=== PATIENT | female | born 1945 | race Caucasian/White ===

== ENCOUNTER → 2016-11-13 | Outpatient (CLI) | payer MEDICARE ==
[~2016-11-13] MED LIST: CALC-685 PO; CEPH500C PO; CHOL10003 PO; E400C PO; GLUC1TAB9 PO; GLUC500C2 PO; METH454P PO; NF-CIT200 PO; NF-ESOM40C PO; STOOL SOFTNER PO; VITA200C18 PO
== END ==
LOC: FS 10:29
PROVIDERS: ATTEND Internal Medicine Hematology & Oncology
DX: Z08 Encounter for follow-up examination after completed treatment for malignant neoplasm (principal); Z85.3 Personal history of malignant neoplasm of breast; M81.0 Age-related osteoporosis without current pathological fracture; I89.0 Lymphedema, not elsewhere classified; Z79.899 Other long term (current) drug therapy
CPT/HCPCS: 99213

== ENCOUNTER → 2017-11-19 | Outpatient (CLI) | payer MEDICARE | LOC: ONC 10:38 | PROVIDERS: ATTEND Internal Medicine Hematology & Oncology | DX: Z08 Encounter for follow-up examination after completed treatment for malignant neoplasm (principal); Z85.3 Personal history of malignant neoplasm of breast; M81.0 Age-related osteoporosis without current pathological fracture; I89.0 Lymphedema, not elsewhere classified; Z79.899 Other long term (current) drug therapy | CPT/HCPCS: 99213 ==

== ENCOUNTER → 2018-11-18 | Outpatient (CLI) | payer MEDICARE | LOC: ONC 10:13 | PROVIDERS: ATTEND Internal Medicine Hematology & Oncology | DX: Z08 Encounter for follow-up examination after completed treatment for malignant neoplasm (principal); Z85.3 Personal history of malignant neoplasm of breast; M81.0 Age-related osteoporosis without current pathological fracture; Z79.899 Other long term (current) drug therapy | CPT/HCPCS: 99213 ==

== ENCOUNTER 2018-12-23 06:45 | Day surgery (SDC) | payer MEDICARE, BC ==
[~2018-12-23] VITALS: Ht 160 cm; Wt 68.0 kg
[2018-12-23] VITALS (9 sets, daily range): BP systolic 112–144; BP diastolic 57–86
[2018-12-23] MEDS ORDERED: LIDOCAINE 1% INJ 20 ML 20 ML VIAL ONE (06:47)
[2018-12-23] MEDS ORDERED: HEParin (CATH LAB) 2,000 ML IV ONE (06:47)
[2018-12-23] MEDS ORDERED: NS IV 1000 ML 1,000 ML ONE (06:47)
[2018-12-23] MEDS ORDERED: NS IV 1000 ML 1,000 ML IV SCH ×2 (07:00→08:50)
[2018-12-23 07:12] LABS: HEMOGLOBIN 12.8 G/DL (11.5-16.0); MEAN PLATELET VOLUME 9.1 FL (7.4-10.4); RED CELL DISTRIBUTION WIDTH 14.8 % (10.0-14.5); WHITE BLOOD COUNT 8.6 10^3/uL (4.3-11.0)
[2018-12-23 07:25] LABS: INR 0.9 (0.8-1.4); PROTHROMBIN TIME PATIENT 12.2 SEC (12.2-14.7)
[2018-12-23] MEDS ORDERED: CETI-187 PO (07:32)
[2018-12-23] MEDS ORDERED: PARO20TA5 PO (07:32)
[2018-12-23] MEDS ORDERED: MULT-1021 PO (07:32)
[2018-12-23] MEDS ORDERED: ACET-2267 PO (07:32)
[2018-12-23] MEDS ORDERED: OMEP40CA36 PO (07:32)
[2018-12-23] MEDS ORDERED: KRIL1CAP22 PO (07:32)
[2018-12-23] MEDS ORDERED: ASPI-586 PO (07:32)
[2018-12-23] MEDS ORDERED: GABA-486 PO (07:32)
[2018-12-23] MEDS ORDERED: ATOR20TA66 PO (07:32)
[2018-12-23] MEDS ORDERED: NAPR220C11 PO (07:32)
[2018-12-23] MEDS ORDERED: [UNRECOGNIZED DRUG - CODE] TP (07:32)
[2018-12-23 07:33] LABS: ALANINE AMINOTRANSFERASE 26 U/L (0-55); ALBUMIN 4.3 GM/DL (3.2-4.5); ALKALINE PHOSPHATASE 109 U/L (40-136); BILIRUBIN,TOTAL 0.5 MG/DL (0.1-1.0); BUN/CREATININE RATIO 15; CALCIUM 9.7 MG/DL (8.5-10.1); CARBON DIOXIDE 25 MMOL/L (21-32); CHLORIDE 108 MMOL/L (98-107); CHOLESTEROL 151 MG/DL (< 200); CREATININE SERUM 0.82 MG/DL (0.60-1.30); GFR ESTIMATED > 60; GLUCOSE 97 MG/DL (70-105); HDL CHOLESTEROL 52 MG/DL (40-60); POTASSIUM 3.9 MMOL/L (3.6-5.0); SODIUM 144 MMOL/L (135-145); TOTAL PROTEIN 7.5 GM/DL (6.4-8.2); TRIGLYCERIDES 171 MG/DL (<150); VLDL CHOLESTEROL 34 MG/DL (5-40)
[2018-12-23] MEDS ORDERED: MIDAZOLAM 5 MG/5 ML (VERSED) VIAL ONE (07:43)
[2018-12-23] MEDS ORDERED: fentaNYL INJECTION 100 MCG/2 ML AMP ONE (07:43)
--- NOTE | 2018-12-23 08:50 | Cardiac Procedure Note-CS/ASA ---
Pre-Procedure Note Pre-Op Procedure Note H&P Reviewed The H&P was reviewed, patient examined and no changes noted. Date H&P Reviewed: Dec 23, 2018 Time H&P Reviewed: 08:15 Conscious Sedation Pre-Proced Time 08:15 ASA Score 3 For ASA 3 and 4: Consider anesthesia and medical clearance. Also, for patients with a history of failed moderate sedation consider anesthesia. Airway Lungs Heart ASA score ASA 1: a normal healthy patient ASA 2: a patient with a mild systemic disease (mid diabetes, controlled hypertension, obesity ASA 3: a patient with a severe systemic disease that limits activity (angina, COPD, prior Myocardial infarction) ASA 4: a patient with an incapacitating disease that is a constant threat to life (CHF, renal failure) ASA 5: a moribund patient not expected to survive 24 hrs. (ruptured aneurysm) ASA 6: a declared brain- patient whose organs are being harvested. For emergent operations, add the letter E after the classification Mallampati Classification Grade 2 Sedation Plan Analgesia, Amnesia, Plan communicated to team members, Discussed options with patient/fam, Discussed risks with patient/fam The patient is an appropriate candidate to undergo the planned procedure, sedation, and anesthesia. The patient immediately re-assessed prior to indication. ELSA KNOWLES MD FACP FAC CCDS Dec 23, 2018 08:50
--- NOTE | 2018-12-23 08:55 | Discharge Inst-Post CATH ---
Discharge Inst-CATH/EP Problems Reviewed?: Yes Post Cardiac Cath/EP D/C Inst Follow Up/Plan F/u with Dr Tobar in 2 weeks ACTIVITY * Go Home directly and rest. * Limit activity of the leg (or wrist if it was used) for 7 days including aerobics, swimming, jogging, bicycling, etc. * Restrict stair-climbing for 7 days if possible, if not, climb up with your non-cath leg, then bring together on the same step. * Avoid lifting, pushing, pulling or excessive movement of the affected extremity for 7 days. * Customary sexual activity may be resumed after 2 days-use caution not to use a position that strains or causes pain to the affected extremity. * No driving for 24 hours. * NO SMOKING. * Avoid straining for bowel movements for 7 days. * Gentle walking on level ground is allowed. * Returning to work will depend on the type of procedure and the results. Your doctor will discuss this with you. CALL YOUR DOCTOR FOR ANY OF THE FOLLOWING: *If bleeding from the puncture site occurs- Apply gentle pressure to site with clean cloth and call your doctor or EMS. * If a knot or lump forms under the skin, increases in size, or causes pain. * If bruising appears to be worsening or moving further down your leg instead of disappearing. * Temperature above 101 F. CARE OF YOUR GROIN INCISION; * Bruising or purple discoloration of the skin near the puncture site is common. * You may shower only, no bathtub bathing for 5 days. Be careful to avoid slipping as your leg may feel stiff. * If a closure device was used on your femoral artery, please see the attached guide regarding care of the device and your leg. * Leave dressing on FOR 24 hours. CARE OF YOUR WRIST INCISION; * Bruising or purple discoloration of the skin near the puncture site is common. * You may shower. * DO NOT submerge wrist. * Leave dressing on FOR 24 hours. ELSA TOBAR MD FACP [facility] CCDS Dec 23, 2018 08:54
--- NOTE | 2018-12-23 08:55 | Discharge Inst-Cardiology ---
Discharge Inst-Cardiac Problems Reviewed?: Yes Discharge Medications Continued Medications: Acetaminophen (Tylenol Extra Strength) 500 Mg Tablet 500 MG PO QID, TAB Aspirin (Aspir 81) 81 Mg Tablet.dr 81 MG PO DAILY, TAB Atorvastatin Calcium (Atorvastatin Calcium) 20 Mg Tablet 20 MG PO DAILY, TAB Calcium Carbonate/Vitamin D3 (Calcium 600 + Vit D 400 Caplet) 1 Each Tablet 1 EACH PO BID Cetirizine HCl (Aller-Hiwot) 10 Mg Tablet 10 MG PO DAILY, TAB Cholecalciferol (Vitamin D) 1,000 Unit Tablet 1000 UNIT PO DAILY Fluticasone Propionate (Fluticasone Propionate) 120 Ml Lotion 120 ML TP DAILY, ML Gabapentin (Gabapentin) 100 Mg Capsule 100 MG PO Q8H for Neuropathic pain, CAP Glucosamine Hcl/Msm (Sm Glucosamine & Msm Tablet) 1 Each Tablet 1 EACH PO BID 1500MG TAB PO BID TAKING OWN MED Krill/Om-3/Dha/Epa/Phospho/Ast (Megared [place]-3 Krill Oil Sfgl) 1 Each Capsule 1 EACH PO DAILY, CAP Multivits-Min/Iron/FA/Lutein (Centrum Silver Women Tablet) 1 Each Tablet 1 EACH PO DAILY, TAB Omeprazole (Omeprazole) 40 Mg Capsule.dr 40 MG PO DAILY, CAP Paroxetine HCl (Paroxetine HCl) 20 Mg Tablet 20 MG PO DAILY, TAB Vitamin E Acetate (Vitamin E) 400 Unit Capsule 400 UNIT PO DAILY Discontinued Medications: Naproxen Sodium (Aleve) 220 Mg Capsule 220 MG PO BID, ELSA WOODARD MD FACP FAC CCDS Dec 23, 2018 08:55
--- NOTE | 2018-12-23 08:55 | CARDIAC CATHETERIZATION ---
DATE OF SERVICE: 12/23/2018 CARDIAC CATHETERIZATION REPORT The patient is a 73-year-old lady, who has multiple coronary artery disease risk factors and who has symptoms that are suggestive of new onset of angina pectoris. Cardiac catheterization was carried out today after having obtained an informed consent. PROCEDURE IN DETAIL: She was brought to the cardiac catheterization laboratory in a fasting state. Right groin was prepared and draped in the usual sterile fashion. Lidocaine 1% was used for local anesthesia. Modified Seldinger technique was used to advance a 5-Israeli sheath in the right femoral artery, 5-Israeli JL4 catheter was used for left coronary angiography, 5-Israeli JR4 catheter for right coronary angiography, 5-Israeli pigtail catheter was used for left heart catheterization and left ventricular coronary angiography. Pigtail was pulled back to the aortic arch and aortic arch angiography was performed. Pigtail was removed. Angiography of the right femoral artery was carried out through the sheath. Mynx was used to achieve hemostasis. She tolerated the procedure well. HEMODYNAMICS: Left ventricular end-diastolic pressure was 12 mmHg. There was no significant pressure gradient on pullback across the aortic valve. Ascending aortic pressure was 127/68 with a mean of 68 mmHg. LEFT VENTRICULAR CORONARY ANGIOGRAPHY: Left ventricular coronary angiography was carried out in the right anterior oblique projection. Global left ventricular systolic function is normal. No regional wall motion abnormalities are seen. Left ventricular ejection fraction is approximately 60 to 65%. CORONARY ANGIOGRAPHY: Left main coronary artery is free of significant disease. Left anterior descending artery has mild calcification. Left circumflex artery is small and nondominant and free of significant disease. Right coronary artery is large and dominant and has mild plaques and mild calcification. AORTIC ARCH ANGIOGRAPHY: Aortic arch angiography did not indicate any significant thoracic aortic aneurysm or dissection, to the extent visualized. The neck arteries, to the extent visualized, do not exhibit significant disease. CONCLUSIONS: 1. Angiographically mild coronary artery disease. 2. Normal global left ventricular systolic function with ejection fraction of 60 to 65%. 3. Normal left ventricular end-diastolic pressure. DISCUSSION AND RECOMMENDATIONS: Based on results of the study, it appears appropriate to continue a conservative approach. Risk factor modification has been reviewed with her. Outpatient followup is advised. Job ID: [id number] DocumentID: [id number] Dictated Date: 12/23/2018 08:42:28 Stone Grader Date: 12/23/2018 08:54:49 Dictated By: ELSA KNOWLES MD, MA, FACP, FACC, MTDD
[2018-12-23] MEDS ORDERED: PATIENT MAY USE OWN MEDS, ALL PO SCH (09:00)
== END 2018-12-23 12:10 | disposition home or self-care (01) ==
LOC: CATH 06:45 → SDC 09:02 → CATH 12:10
PROVIDERS: ATTEND Internal Medicine Cardiovascular Disease
DX: I25.10 Atherosclerotic heart disease of native coronary artery without angina pectoris (principal); M81.0 Age-related osteoporosis without current pathological fracture; K21.9 Gastro-esophageal reflux disease without esophagitis; Z85.3 Personal history of malignant neoplasm of breast; I77.9 Disorder of arteries and arterioles, unspecified; E78.5 Hyperlipidemia, unspecified; R06.02 Shortness of breath; Z11.2 Encounter for screening for other bacterial diseases; Z88.2 Allergy status to sulfonamides; Z79.899 Other long term (current) drug therapy
CPT/HCPCS: 36221; 36415; 80053; 80061; 85027; 85610; 85730; 87081; 93458

== ENCOUNTER → 2019-01-13 | Outpatient (CLI) | payer MEDICARE, BC ==
[2019-01-13] VITALS (21 sets, daily range): BP systolic 103–137; BP diastolic 66–86
[~2019-01-13] VITALS: Ht 157.5 cm; Wt 69.4 kg
[~2019-01-13] MED LIST changes: +ACET-2267 PO; +ASPI-586 PO; +ATOR20TA66 PO; +ATROPINE INJECTION 1 MG/10 ML SYR (ABBOTT) ONE; +CETI-187 PO; +GABA-486 PO; +KRIL1CAP22 PO; +MULT-1021 PO; +NAPR220C11 PO; +NS IV 1000 ML 1,000 ML IV SCH; +NS IV 1000 ML 1,000 ML ONE; +OMEP40CA36 PO; +PARO20TA5 PO; +[UNRECOGNIZED DRUG - CODE] TP
--- NOTE | 2019-01-13 09:10 | NUR ---
iv dc'd cath intact on removal, dc via w/c
== END ==
LOC: CARD 06:52
PROVIDERS: ATTEND Internal Medicine Cardiovascular Disease
DX: I65.29 Occlusion and stenosis of unspecified carotid artery (principal); I25.10 Atherosclerotic heart disease of native coronary artery without angina pectoris; E78.5 Hyperlipidemia, unspecified; Z95.0 Presence of cardiac pacemaker
CPT/HCPCS: 93660

== ENCOUNTER → 2019-02-11 | Outpatient (CLI) | payer MEDICARE, BC ==
[~2019-02-11] MED LIST changes: -ATROPINE INJECTION 1 MG/10 ML SYR (ABBOTT) ONE; -NS IV 1000 ML 1,000 ML IV SCH; -NS IV 1000 ML 1,000 ML ONE
== END ==
LOC: RT 12:18
PROVIDERS: ATTEND Internal Medicine Cardiovascular Disease
DX: I65.29 Occlusion and stenosis of unspecified carotid artery (principal); R06.02 Shortness of breath; R55 Syncope and collapse; R07.89 Other chest pain

== ENCOUNTER → 2019-03-06 | Outpatient (CLI) | payer MEDICARE, BC ==
[~2019-03-06] MED LIST changes: +OMEP40CA27 PO; -OMEP40CA36 PO
--- NOTE | 2019-03-06 12:36 | Diagnostic Imaging Report ---
INDICATION: Routine screening. Comparison is made with prior mammogram from 02/24/2018 and 02/12/2017. 2-D and 3-D bilateral screening mammography was performed with a Computer Aided Detection (CAD) system. 3-D tomosynthesis was also performed and reviewed. FINDINGS: Scattered fibroglandular densities are identified bilaterally. Postbiopsy changes medial left breast again noted. Marker clip at the biopsy site is again noted. Overall parenchymal pattern appears to be stable. There are vascular and benign calcifications present bilaterally. No mass or malignant appearing microcalcifications are seen. Surgical clips left axilla are noted. IMPRESSION: No mammographic features suspicious for malignancy are identified. ACR BI-RADS Category 2: Benign findings. Result letter will be mailed to the patient. Note: At least 10% of breast cancer is not imaged by mammography. Dictated by: Dictated on workstation # [id number]
== END ==
LOC: RAD 11:22
PROVIDERS: ATTEND Internal Medicine Hematology & Oncology
DX: Z12.31 Encounter for screening mammogram for malignant neoplasm of breast (principal)
CPT/HCPCS: 77067

== ENCOUNTER → 2019-06-26 | Outpatient (CLI) | payer MEDICARE, BC ==
--- NOTE | 2019-06-26 14:33 | Diagnostic Imaging Report ---
INDICATION: Abdominal pain. EXAMINATION: HIDA scan dated 06/26/2019. FINDINGS: After uneventful administration of 5.07 mCi of Choletec intravenously, subsequent imaging was performed. The liver is homogeneous in appearance with prompt uptake noted. Gallbladder and proximal small bowel loops are all seen in less than 40 minutes. 8 ounces of Ensure were ingested orally at 45 minutes with continued imaging performed. Ejection fraction is calculated at 40.4% IMPRESSION: 1. No obstructive process seen. 2. Normal ejection fraction. Dictated by: Dictated on workstation # [id number]
== END ==
LOC: CARD 11:32
PROVIDERS: ATTEND Family Medicine
DX: R10.9 Unspecified abdominal pain (principal)
CPT/HCPCS: 78227

== ENCOUNTER → 2019-11-23 | Outpatient (CLI) | payer MEDICARE, BC ==
[2019-11-23 13:08] LABS: BASOPHILS % (AUTO) 1 % (0-10); EOSINOPHILS # (AUTO) 0.2 10^3/uL (0.0-0.3); EOSINOPHILS % (AUTO) 2 % (0-10); HEMATOCRIT 37 % (35-52); HEMOGLOBIN 12.3 G/DL (11.5-16.0); LYMPHOCYTES # (AUTO) 2.8 X 10^3 (1.0-4.0); LYMPHOCYTES % (AUTO) 33 % (12-44); MEAN CORPUSCULAR HEMOGLOBIN 31 PG (25-34); MEAN CORPUSCULAR HGB CONC 33 G/DL (32-36); MEAN CORPUSCULAR VOLUME 93 FL (80-99); MEAN PLATELET VOLUME 8.9 FL (7.4-10.4); MONOCYTES # (AUTO) 0.6 X 10^3 (0.0-1.0); MONOCYTES % (AUTO) 7 % (0-12); NEUTROPHILS # (AUTO) 4.8 X 10^3 (1.8-7.8); NEUTROPHILS % (AUTO) 57 % (42-75); PLATELET COUNT 259 10^3/uL (130-400); RED CELL DISTRIBUTION WIDTH 13.8 % (10.0-14.5); WHITE BLOOD COUNT 8.4 10^3/uL (4.3-11.0)
[2019-11-23 13:32] LABS: ALANINE AMINOTRANSFERASE 24 U/L (0-55); ALBUMIN 4.1 GM/DL (3.2-4.5); ALKALINE PHOSPHATASE 93 U/L (40-136); BILIRUBIN,TOTAL 0.3 MG/DL (0.1-1.0); BUN/CREATININE RATIO 18; CALCIUM 9.3 MG/DL (8.5-10.1); CARBON DIOXIDE 24 MMOL/L (21-32); CHLORIDE 106 MMOL/L (98-107); CREATININE SERUM 0.78 MG/DL (0.60-1.30); GFR ESTIMATED > 60; GLUCOSE 109 MG/DL (70-105); POTASSIUM 3.9 MMOL/L (3.6-5.0); SODIUM 140 MMOL/L (135-145); TOTAL PROTEIN 7.1 GM/DL (6.4-8.2)
== END ==
LOC: ONC 12:57
PROVIDERS: ATTEND Internal Medicine Hematology & Oncology
DX: C50.912 Malignant neoplasm of unspecified site of left female breast (principal); I89.0 Lymphedema, not elsewhere classified; K21.9 Gastro-esophageal reflux disease without esophagitis; E78.5 Hyperlipidemia, unspecified; Z92.21 Personal history of antineoplastic chemotherapy; Z92.3 Personal history of irradiation; Z90.12 Acquired absence of left breast and nipple
CPT/HCPCS: 80053; 85025; G0463; 99213

== ENCOUNTER → 2020-03-07 | Outpatient (CLI) | payer MEDICARE, BC ==
--- NOTE | 2020-03-07 16:23 | Diagnostic Imaging Report ---
INDICATION: Routine screening. COMPARISON: 03/06/2019 and 02/24/2018. TECHNIQUE: 2D and 3D bilateral screening mammography was performed with CAD. FINDINGS: Scattered fibroglandular densities are identified bilaterally. The parenchymal pattern is stable. No mass or malignant appearing microcalcifications are seen. There is a marker clip in the left breast. There are benign parenchymal and vascular calcifications. The axillae are unremarkable. IMPRESSION: No mammographic features suspicious for malignancy are identified. ACR BI-RADS Category 2: Benign findings. Result letter will be mailed to the patient. Note: At least 10% of breast cancer is not imaged by mammography. Dictated by: Dictated on workstation # [id number]
== END ==
LOC: RAD 15:00
PROVIDERS: ATTEND Internal Medicine Hematology & Oncology
DX: Z12.31 Encounter for screening mammogram for malignant neoplasm of breast (principal)
CPT/HCPCS: 77063; 77067

== ENCOUNTER 2020-05-15 11:48 | Inpatient (IN) | payer MEDICARE, BC ==
[~2020-05-15] VITALS: Ht 157 cm; Wt 67.0 kg
[2020-05-15] MEDS ORDERED: NS IV 1000 ML 1,000 ML IV SCH ×2 (13:00→14:30)
--- NOTE | 2020-05-15 13:40 | ED Upper Extremity ---
General Chief Complaint: Upper Extremity Stated Complaint: LT ARM SWELLING Nursing Triage Note: left arm and hand started swelling and having redness this morning. States has had this happen before and has had to be on antibiotics for infection. States she felt bad yesterday with tiredness/weakness. Denies fevers. Nursing Sepsis Screen: No Definite Risk Source: patient History of Present Illness Date Seen by Provider: May 15, 2020 Time Seen by Provider: 13:40 Initial Comments 75-year-old female presenting with complaints of left hand and arm swelling. She noticed that it was more red and tender this morning. She was not feeling well last night and has been more fatigued. She just was getting over COVID that she had at the beginning of April. she denies having any fever or chills at home. She already has lymphedema in her left arm due to to prior lymph node dissection after breast cancer. She has had cellulitis in that arm previously the last admission was in 2011. She denies any injury or trauma there is no scratches or abrasions to her left hand/arm. Allergies and Home Medications Allergies Coded Allergies: vancomycin (Verified Allergy, Intermediate, RASH, 05/11/11) Sulfa (Sulfonamide Antibiotics) (Unverified Allergy, Mild, RASH, 05/11/11) Home Medications Acetaminophen 500 Mg Tablet, 500 MG PO QID, (Reported) Aspirin 81 Mg Tablet.dr, 81 MG PO DAILY, (Reported) Atorvastatin Calcium 20 Mg Tablet, 20 MG PO DAILY, (Reported) Calcium Carbonate/Vitamin D3 1 Each Tablet, 1 EACH PO BID, (Reported) Cetirizine HCl 10 Mg Tablet, 10 MG PO DAILY, (Reported) Cholecalciferol 1,000 Unit Tablet, 1,000 UNIT PO DAILY, (Reported) Fluticasone Propionate 120 Ml Lotion, 120 ML TP DAILY, (Reported) Gabapentin 100 Mg Capsule, 100 MG PO Q8H, (Reported) Glucosamine Hcl/Msm 1 Each Tablet, 1 EACH PO BID, (Reported) 1500MG TAB PO BID TAKING OWN MED Krill/Om-3/Dha/Epa/Phospho/Ast 1 Each Capsule, 1 EACH PO DAILY, (Reported) Multivits-Min/Iron/FA/Lutein 1 Each Tablet, 1 EACH PO DAILY, (Reported) Omeprazole 40 Mg Capsule.dr, 40 MG PO DAILY, (Reported) Paroxetine HCl 20 Mg Tablet, 20 MG PO DAILY, (Reported) Vitamin E Acetate 400 Unit Capsule, 400 UNIT PO DAILY, (Reported) Patient Home Medication List Home Medication List Reviewed: Yes Review of Systems Constitutional: No chills, No fever; malaise (since yesterday) EENTM: no symptoms reported Respiratory: no symptoms reported Cardiovascular: no symptoms reported Gastrointestinal: No nausea, No vomiting Genitourinary: no symptoms reported Musculoskeletal: see HPI Skin: see HPI Psychiatric/Neurological: No Symptoms Reported Past Bjegsnv-Ogkcts-Wdtasn Hx Past Med/Social Hx: Reviewed Nursing Past Med/Soc Hx Patient Social History Alcohol Use: Denies Use Recreational Drug Use: No Smoking Status: Never a Smoker 2nd Hand Smoke Exposure: No Recent Foreign Travel: No Contact w/Someone Who Travel: No Recent Infectious Disease Expo: No Physical Abuse: No Sexual Abuse: No Mistreated: No Fear: No Immunizations Up To Date Date of Pneumonia Vaccine: Jan 09, 2010 Date of Influenza Vaccine: Jan 04, 2011 Past Medical History Surgeries: Yes (HYSTORECTOMY, BLADDER, UTERUS REPAIR, LUMPECTOMY, CATARACTS) Breast, Hysterectomy, Orthopedic, Tonsillectomy Respiratory: No Currently Using CPAP: No Cardiac: Yes Hypotension, Syncope Neurological: No Reproductive Disorders: Yes Genitourinary: No Gastrointestinal: Yes Gastroesophageal Reflux Musculoskeletal: Yes Endocrine: No Cancer: Yes Breast Did You Recieve Any Treatments: Yes What Type of Treatment Did You: Chemotherapy, Radiation, Surgical Intervention Psychosocial: No Integumentary: No Blood Disorders: No Adverse Reaction/Blood Tranf: No Physical Exam Vital Signs Vital Signs - First Documented 05/15/20 12:36 Temp 36.4 Pulse 112 Resp 16 B/P (MAP) 130/100 (110) Pulse Ox 92 Capillary Refill : Less Than 3 Seconds Height, Weight, BMI Height: 5'2.00" Weight: 153lbs. 0.0oz. 69.764258fp; 27.00 BMI Method: General Appearance: WD/WN, no apparent distress HEENT: PERRL/EOMI Neck: non-tender, supple Cardiovascular: normal peripheral pulses, regular rate, rhythm Respiratory: chest non-tender, lungs clear, normal breath sounds Elbow/Forearm: soft tissue tenderness, swelling (Left hand/forearm with swelling, redness and mild tenderness to palpation. Extends up to above elbow. ) Hand: soft tissue tenderness, swelling (Left hand/forearm with swelling, redness and mild tenderness to palpation. Extends up to above elbow. ) Neurologic/Tendon: normal sensation, normal motor functions Neurologic/Psychiatric: alert, oriented x 3 Skin: warm/dry, other (Left hand/forearm with swelling, redness and mild tenderness to palpation. Extends up to above elbow. ) Progress/Results/Core Measures Results/Orders Lab Results Laboratory Tests Test 05/15/20 12:50 05/15/20 15:27 Range/Units White Blood Count 12.2 H 4.3-11.0 10^3/uL Red Blood Count 3.56 L 4.35-5.85 10^6/uL Hemoglobin 10.3 L 11.5-16.0 G/DL Hematocrit 32 L 35-52 % Mean Corpuscular Volume 89 80-99 FL Mean Corpuscular Hemoglobin 29 25-34 PG Mean Corpuscular Hemoglobin Concent 33 32-36 G/DL Red Cell Distribution Width 14.0 10.0-14.5 % Platelet Count 438 H 130-400 10^3/uL Mean Platelet Volume 8.8 7.4-10.4 FL Immature Granulocyte % (Auto) 1 % Neutrophils (%) (Auto) 71 42-75 % Lymphocytes (%) (Auto) 21 12-44 % Monocytes (%) (Auto) 6 0-12 % Eosinophils (%) (Auto) 0 0-10 % Basophils (%) (Auto) 0 0-10 % Neutrophils # (Auto) 8.6 H 1.8-7.8 X 10^3 Lymphocytes # (Auto) 2.6 1.0-4.0 X 10^3 Monocytes # (Auto) 0.8 0.0-1.0 X 10^3 Eosinophils # (Auto) 0.0 0.0-0.3 10^3/uL Basophils # (Auto) 0.0 0.0-0.1 10^3/uL Immature Granulocyte # (Auto) 0.1 0.0-0.1 10^3/uL Sodium Level 137 135-145 MMOL/L Potassium Level 3.7 3.6-5.0 MMOL/L Chloride Level 102 98-107 MMOL/L Carbon Dioxide Level 21 21-32 MMOL/L Anion Gap 14 5-14 MMOL/L Blood Urea Nitrogen 14 7-18 MG/DL Creatinine 0.83 0.60-1.30 MG/DL Estimat Glomerular Filtration Rate > 60 BUN/Creatinine Ratio 17 Glucose Level 217 H 70-105 MG/DL Lactic Acid Level 3.37 *H 1.08 0.50-2.00 MMOL/L Calcium Level 9.1 8.5-10.1 MG/DL Corrected Calcium 9.7 8.5-10.1 MG/DL Total Bilirubin 0.3 0.1-1.0 MG/DL Aspartate Amino Transf (AST/SGOT) 15 5-34 U/L Alanine Aminotransferase (ALT/SGPT) 16 0-55 U/L Alkaline Phosphatase 97 40-136 U/L C-Reactive Protein 13.32 H <0.50 MG/DL Total Protein 7.2 6.4-8.2 GM/DL Albumin 3.3 3.2-4.5 GM/DL My Orders Orders - JULITA MONIQUE MD Cbc With Automated Diff (05/15/20 12:49) Comprehensive Metabolic Panel (05/15/20 12:49) Blood Culture (05/15/20 12:49) Ed Iv/Invasive Line Start (05/15/20 12:49) Crp Fs (05/15/20 12:49) Lactic Acid Analyzer (05/15/20 12:49) Ns Iv 1000 Ml (Sodium Chloride 0.9%) (05/15/20 13:00) Ns Iv 1000 Ml (Sodium Chloride 0.9%) (05/15/20 14:30) Piperacillin Sodium/Tazobactam (Zosyn Vi (05/15/20 14:30) Medications Given in ED Current Medications Medications Dose Ordered Sig/Juan Route Start Time Stop Time Status Last Admin Dose Admin Piperacillin Sod/ Tazobactam Sod 4.5 gm/Sodium Chloride 100 ml @ 200 mls/hr ONCE ONCE IV 05/15/20 14:30 05/15/20 14:59 DC 05/15/20 15:03 200 MLS/HR Vital Signs/I&O 05/15/20 12:36 Temp 36.4 Pulse 112 Resp 16 B/P (MAP) 130/100 (110) Pulse Ox 92 Blood Pressure Mean: 110 Progress Progress Note #1: Progress Note Obtain blood for lab as well as blood cultures and lactic acid and CRP. With her initial vital signs showing tachycardia and mild drop in her temperature there is concern for sepsis. Especially with her having lymphedema in the left upper extremity and a history of cellulitis in that extremity. Progress Note #2: Progress Note her labs demonstrated an elevated white blood cell count with a left shift and she had a lactic acid of 3.37. Her CRP was also elevated. Discussed with patient about starting antibiotics and admitting him for IV antibiotics with her lymphedema and the history of cellulitis as well as having sepsis considering she has elevated white blood cell count, tachycardia on presentation, elevated lactic acid. Hemodynamically she is doing better after a liter of fluid. We will start antibiotics and check with Dr. Real about admission. 1413 Dr. Real accepted pt for admit for Zosyn and Zyvox since she has Vancomycin listed as an allergy. Departure Communication (Admissions) Time/Spoke to Admitting Phy: 14:[address] Real on-call for [facility] and Dr. phillips. Will admit for IV antibiotics and sepsis treatment. Continue IV fluids. Since she has sulfa and vancomycin listed as allergies would start with Zosyn and Zyvox. Impression Primary Impression: Sepsis Qualified Codes: A41.9 - Sepsis, unspecified organism Additional Impressions: Cellulitis of left upper extremity Lymphedema of left upper extremity Disposition: 30 STILL A PATIENT Condition: Stable Admissions Decision to Admit Reason: Admit from ER (General) Decision to Admit/Date: May 15, 2020 Time/Decision to Admit Time: 14:13 Departure-Patient Inst. Referrals: KATHRINE PHILLIPS MD (PCP/Family) Primary Care Physician JULITA MONIQUE MD May 15, 2020 13:40
[2020-05-15 13:42] LABS: HEMATOCRIT 32 % (35-52); HEMOGLOBIN 10.3 G/DL (11.5-16.0); LYMPHOCYTES % (AUTO) 21 % (12-44); MEAN CORPUSCULAR HEMOGLOBIN 29 PG (25-34); MEAN CORPUSCULAR HGB CONC 33 G/DL (32-36); MEAN CORPUSCULAR VOLUME 89 FL (80-99); MEAN PLATELET VOLUME 8.8 FL (7.4-10.4); NEUTROPHILS % (AUTO) 71 % (42-75); PLATELET COUNT 438 10^3/uL (130-400); WHITE BLOOD COUNT 12.2 10^3/uL (4.3-11.0)
[2020-05-15 13:43] LABS: BASOPHILS % (AUTO) 0 % (0-10); EOSINOPHILS % (AUTO) 0 % (0-10); LYMPHOCYTES # (AUTO) 2.6 X 10^3 (1.0-4.0); MONOCYTES # (AUTO) 0.8 X 10^3 (0.0-1.0); MONOCYTES % (AUTO) 6 % (0-12); NEUTROPHILS # (AUTO) 8.6 X 10^3 (1.8-7.8)
[2020-05-15 13:45] LABS: ALANINE AMINOTRANSFERASE 16 U/L (0-55); ALKALINE PHOSPHATASE 97 U/L (40-136); BILIRUBIN,TOTAL 0.3 MG/DL (0.1-1.0); BUN/CREATININE RATIO 17; CALCIUM 9.1 MG/DL (8.5-10.1); CARBON DIOXIDE 21 MMOL/L (21-32); CHLORIDE 102 MMOL/L (98-107); CREATININE SERUM 0.83 MG/DL (0.60-1.30); GFR ESTIMATED > 60; GLUCOSE 217 MG/DL (70-105); POTASSIUM 3.7 MMOL/L (3.6-5.0); SODIUM 137 MMOL/L (135-145); TOTAL PROTEIN 7.2 GM/DL (6.4-8.2)
[2020-05-15 13:46] LABS: ALBUMIN 3.3 GM/DL (3.2-4.5)
[2020-05-15] MEDS ORDERED: PIPERACILLIN SODIUM/TAZOBACTAM 4.5 GM in NS (IVPB) 100 ML IV ONE (14:30)
[2020-05-15] MEDS ORDERED: LACTATED RINGERS 1,000 ML IV ONE (16:47)
--- NOTE | 2020-05-15 16:50 | NUR ---
TALON VAZQUEZ admitted to room 417-1, with an admitting diagnosis of LEFT ARM CELLULITIS, SEPSIS, on 05/15/20 from [place] via [facility], accompanied by EMS.TALON VAZQUEZ introduced to surroundings, call light, bed controls, phone, TV, temperature control, lights, meal times, smoking policy, visitor policy, side rail policy, bathrooms and showers. Patient Rights given to patient in the handbook. TALON VAZQUEZ verbalizes understanding that [facility] is not responsible for the loss or damage to any personal effects or valuables that are kept in the patients posession during their hospitalization. Patient and/or family were informed about the Rapid Response Team and its purpose. Report from JOYCE Osborne. Initial report from Maria Isabel ALEMAN rn [id number] per Joyce Osborne
[2020-05-15] MEDS: LACTATED RINGERS 1,000 ML IV SCH (17:07)
[2020-05-15] MEDS ORDERED: CATHETER FLUSH 10 ML SYR IV PRN (17:15)
[2020-05-15 17:19] VITALS: BP 107/68
[2020-05-15] MEDS: LINEZOLID IVPB 300 ML IV SCH (18:23)
[2020-05-15] MEDS ORDERED: MELATONIN 3 MG TABLET PO PRN (18:30)
[2020-05-15] MEDS ORDERED: ONDANSETRON 4 MG/2 ML (SDV) Z0FRAN IVP PRN (18:30)
[2020-05-15] MEDS ORDERED: CALCIUM CARBONATE 500 MG (TUMS) TAB.CHEW PO PRN (18:30)
[2020-05-15] MEDS ORDERED: DOCUSATE SODIUM 100 MG (COLACE) CAP PO PRN (18:30)
[2020-05-15] MEDS ORDERED: ALPRAZolam 0.25 MG (XANAX) TAB PO PRN (18:30)
[2020-05-15] MEDS ORDERED: ACETAMINOPHEN 500 MG TAB (TYLENOL) PO PRN (18:30)
[2020-05-15] MEDS ORDERED: diphenhydrAMINE 25 MG TAB (BENADRYL) PO PRN (18:30)
[2020-05-15] MEDS ORDERED: HYDROcodone/APAP 5 MG/325 MG (LORTAB) TAB PO PRN (18:30)
[2020-05-15] MEDS ORDERED: LOPERAMIDE 2 MG (IMODIUM) TABLET PO PRN (18:30)
[2020-05-15] MEDS: ENOXAPARIN 40 MG/0.4 ML (LOVENOX) SYR SC SCH (18:32)
[2020-05-15 20:00] VITALS: BP 102/66
[2020-05-15] MEDS ORDERED: LINEZOLID IVPB 300 ML IV SCH (21:00)
[2020-05-15] MEDS: PIPERACILLIN/TAZO 4.5 GM/NS 100 ML IV SCH ×2 (21:32)
[2020-05-15] MEDS: SENNA W/DOCUSATE (SENOKOT S) TABLET PO SCH (21:33)
[2020-05-16] VITALS: BP 98/60
[2020-05-16] MEDS: LACTATED RINGERS 1,000 ML IV SCH ×3 (00:59→09:07)
[2020-05-16 04:00] VITALS: BP 106/51
[2020-05-16 05:52] LABS: BASOPHILS # (AUTO) 0.1 10^3/uL (0.0-0.1); BASOPHILS % (AUTO) 1 % (0-10); EOSINOPHILS # (AUTO) 0.2 10^3/uL (0.0-0.3); EOSINOPHILS % (AUTO) 2 % (0-10); HEMATOCRIT 28 % (35-52); LYMPHOCYTES % (AUTO) 29 % (12-44); MEAN CORPUSCULAR HEMOGLOBIN 29 pg (25-34); MEAN CORPUSCULAR HGB CONC 32 g/dL (32-36); MEAN CORPUSCULAR VOLUME 90 fL (80-99); MEAN PLATELET VOLUME 8.6 fL (9.0-12.2); MONOCYTES % (AUTO) 10 % (0-12); NEUTROPHILS % (AUTO) 58 % (42-75); PLATELET COUNT 362 10^3/uL (130-400); WHITE BLOOD COUNT 10.3 10^3/uL (4.3-11.0)
[2020-05-16] MEDS: PIPERACILLIN/TAZO 4.5 GM/NS 100 ML IV SCH ×6 (05:58→20:43)
[2020-05-16] MEDS: LINEZOLID IVPB 300 ML IV SCH ×2 (06:01→17:38)
[2020-05-16 06:06] LABS: ALBUMIN 2.9 GM/DL (3.2-4.5); CHLORIDE 110 MMOL/L (98-107); POTASSIUM 3.9 MMOL/L (3.6-5.0); SODIUM 140 MMOL/L (135-145)
[2020-05-16 06:07] LABS: CALCIUM 8.1 MG/DL (8.5-10.1)
[2020-05-16 06:08] LABS: GLUCOSE 98 MG/DL (70-105); TOTAL PROTEIN 6.4 GM/DL (6.4-8.2)
[2020-05-16 06:09] LABS: CARBON DIOXIDE 20 MMOL/L (21-32)
[2020-05-16 06:10] LABS: BILIRUBIN,TOTAL 0.2 MG/DL (0.1-1.0)
[2020-05-16 06:12] LABS: ALKALINE PHOSPHATASE 81 U/L (40-136); CREATININE SERUM 0.83 MG/DL (0.60-1.30); GFR ESTIMATED > 60
[2020-05-16 06:13] LABS: BUN/CREATININE RATIO 17
[2020-05-16 06:15] LABS: ALANINE AMINOTRANSFERASE 20 U/L (0-55)
[2020-05-16 08:00] VITALS: BP 133/77
[2020-05-16] MEDS: SENNA W/DOCUSATE (SENOKOT S) TABLET PO SCH ×2 (09:07→20:38)
[2020-05-16] MEDS ORDERED: NS IV 1000 ML 1,000 ML ONE (09:58)
[2020-05-16] MEDS ORDERED: GABAPENTIN 100 MG (NEURONTIN) CAP PO SCH (10:00)
[2020-05-16] MEDS ORDERED: GABA-486 PO (10:32)
[2020-05-16] MEDS ORDERED: ASPI-1238 PO (10:32)
[2020-05-16] MEDS ORDERED: VITA400C60 PO (10:32)
[2020-05-16] MEDS ORDERED: CHOL100048 PO (10:32)
[2020-05-16] MEDS ORDERED: GLUC100016 PO (10:32)
--- NOTE | 2020-05-16 10:33 | NUR ---
SPOKE WITH THE PT AND WENT THRU THE EXT MED HISTORY TO COMPLETE THE MED REC GABAPENTIN 100MG WAS CONTINUED " 100MG Q 8H" HOWEVER AT HOME PT IS TAKING 200MG BID AND 100MG AT 1400. I HAVE MADE THE PHARMACIST AWARE OF THIS. ASPIRIN 81MG AND ATORVASTATIN 20MG WERE BOTH CONTINUED DAILY BUT AT HOME PT TAKES BOTH THESE AT BEDTIME. OTC MEDS: VIT D VIT E ASPIRIN 81 TYLENOL CETIRIZINE GLUCOSAMINE KRILL OIL MTV
--- NOTE | 2020-05-16 10:39 | History & Physical-Hospitalist ---
JB ZURITA MED STUDENT 05/16/20 1039: History of Present Illness Source: patient Exam Limitations: no limitations Date Seen 05/16/20 Time Seen by a Provider: 08:25 Attending Physician Demetria Atkinson DO PCP Self,Charly PARSON Referring Physician Date of Admission May 15, 2020 at 16:52 Home Medications & Allergies Home Medications Reviewed patient Home Medication Reconciliation performed by pharmacy medication reconciliations test lab technician and/or nursing. Patients Allergies have been reviewed. Allergies Allergies Coded Allergies vancomycin (Verified Allergy, Intermediate, RASH, 05/15/20) Sulfa (Sulfonamide Antibiotics) (Unverified Allergy, Mild, RASH, 05/15/20) Past Kidovvl-Dhojdh-Ntvzal Hx Past Med/Social Hx: Reviewed Nursing Past Med/Soc Hx Patient Social History Alcohol Use: Denies Use Recreational Drug Use: No Smoking Status: Never a Smoker 2nd Hand Smoke Exposure: No Physical Abuse Screen: No Sexual Abuse: No Recent Foreign Travel: No Contact w/other who traveled: No Recent Hopitalizations: No (2018 SHOULDER SURGERY) Recent Infectious Disease Expo: No Immunizations Up To Date Date of Pneumonia Vaccine: May 15, 2017 Date of Influenza Vaccine: Jan 04, 2011 Seasonal Allergies Seasonal Allergies: Yes Past Medical History Surgeries: Breast, Hysterectomy, Orthopedic, Tonsillectomy Currently Using CPAP: No Currently Using BIPAP: No Cardiac: Hypotension, Syncope Reproductive: Yes Gastrointestinal: Colitis, Gastroesophageal Reflux Musculoskeletal: Back Injury, Fractures HEENT: Cataract Cancer: Breast Did You Recieve Any Treatments: Yes What Type of Treatment Did You: Chemotherapy, Radiation, Surgical Intervention History of Blood Disorders: No Adverse Reaction to Blood Alexander: No Review of Systems Constitutional: No chills, No fever EENTM: No ear discharge, No hearing loss, No ear pain Respiratory: cough (post-covid /); No hemoptysis, No orthopnea Cardiovascular: No chest pain; edema (L arm); No palpitations Gastrointestinal: No RUQ, No LUQ, No RLQ, No LLQ Genitourinary: No dysuria, No frequency, No hematuria, No hesitancy Musculoskeletal: No muscle pain, No muscle stiffness, No muscle cramps Skin: No dryness, No pruritus; rash (cellulitis ) Psychiatric/Neurological: Denies Anxiety, Denies Depressed Physical Exam Physical Exam Vital Signs Vital Signs - First Documented 05/15/20 05/15/20 12:36 15:30 Temp 36.4 Pulse 112 Resp 16 B/P (MAP) 130/100 (110) Pulse Ox 92 O2 Delivery Room Air Capillary Refill : Less Than 3 Seconds Height, Weight, BMI Height: 5'2.00" Weight: 153lbs. 0.0oz. [id number]; 27.18 BMI Method: General Appearance: No Apparent Distress, WD/WN Eyes: Bilateral Eye Normal Inspection, Bilateral Eye PERRL HEENT: PERRL/EOMI, Normal ENT Inspection Neck: Full Range of Motion, Supple Respiratory: Chest Non Tender, No Respiratory Distress Cardiovascular: Regular Rate, Rhythm, Normal Peripheral Pulses Gastrointestinal: Normal Bowel Sounds, No Organomegaly Back: Normal Inspection, No CVA Tenderness Extremity: Non Tender, Swelling (L arm) Neurologic/Psychiatric: Alert, Oriented x3, No Motor/Sensory Deficits, Normal Mood/Affect Skin: Normal Color, Warm/Dry, Rash Results Results/Procedures Labs Laboratory Tests 05/15/20 12:50 05/16/20 05:32 Patient resulted labs reviewed. Assessment/Plan Assessment and Plan Lymphedema secondary to axillary breast node dissection Cellulitis Sepsis Zosyn/Zyvox for cellulitis and possible sepsis Compression therapy/PT/OMM to help clear lymphedema Clinical Quality Measures DVT/VTE Risk/Contraindication: Risk Factor Score Per Nursin RFS Level Per Nursing on Admit: 2=Moderate DEMETRIA ATKINSON DO 05/16/20 2006: History of Present Illness HPI/Chief Complaint CC: Left arm cellulitis with lymphedema HPI: This is a 75yoWF clinic Pt of Dr. Post and Dr. Byrnes oncology who has a past medical history of breast cancer on the left s/p surgery with subsequent chronic lymphedema that last had cellulitis of the arm in 2011. She was Covid-19 positive over one month ago and at this current time she is doing very well, Zyvox and Zosyn being maintained since she is allergic to Vancomycin. We will discontinue Telemetry and restart her home medication and heplock the fluid. Source: patient Exam Limitations: no limitations Past Axzlinf-Obdyqq-Iogziq Hx Past Med/Social Hx: Reviewed Nursing Past Med/Soc Hx, Reviewed and Corrections made Patient Social History Marrital Status: Employed/Student: retired Alcohol Use: Denies Use Smoking Status: Never a Smoker Past Medical History Surgeries: Breast Neurological: Neuropathy Cancer: Breast Did You Recieve Any Treatments: Yes Review of Systems Constitutional: see HPI Skin: change in color, rash (cellulitis ) Physical Exam Physical Exam General Appearance: No Apparent Distress, Chronically ill Eyes: Right Eye Normal Inspection, Right Eye PERRL HEENT: PERRL/EOMI, Normal ENT Inspection, Pharynx Normal, Moist Mucous Membrane s Neck: Full Range of Motion, Normal Inspection, Non Tender Respiratory: Chest Non Tender, Lungs Clear, Normal Breath Sounds, No Accessory Muscle Use, No Respiratory Distress Cardiovascular: Regular Rate, Rhythm, No Edema, No Gallop, No JVD, No Murmur, Normal Peripheral Pulses Gastrointestinal: Normal Bowel Sounds, No Organomegaly, No Pulsatile Mass, Non Tender, Soft Back: Normal Inspection, No CVA Tenderness, No Vertebral Tenderness Extremity: Normal Capillary Refill, Normal Inspection, Normal Range of Motion, Non Tender, No Calf Tenderness, No Pedal Edema, Swelling (left upper extremitywith redness) Neurologic/Psychiatric: Alert, Oriented x3, No Motor/Sensory Deficits, Normal Mood/Affect Skin: Normal Color, Warm/Dry Lymphatic: No Adenopathy Assessment/Plan Admission Diagnosis Assessment: Sepsis Left upper extremity cellulitis Left upper extremity lymphedema Breast cancer hx Plan: IV abx Home meds HLIVF PT OT Admission Status: Inpatient Order (span 2 midnights) Reason for Inpatient Admission: cellulitis with lymphedema Diagnosis/Problems Diagnosis/Problems (1) Lymphedema of left upper extremity Status: Acute (2) Cellulitis of left upper extremity Status: Acute (3) Sepsis Status: Acute Qualifiers: Sepsis type: sepsis due to unspecified organism Sepsis acute organ dysfunction status: without acute organ dysfunction Qualified Codes: A41.9 - Sepsis, unspecified organism Supervisory-Addendum Brief Verification & Attestation Participated in pt care: history, MDM, physical Personally performed: exam, history, MDM, supervision of care Care discussed with: Medical Student Procedures: n/a Results interpretation: Verified all documentation Verification and Attestation of Medical Student E/M Service A medical student performed and documented this service in my presence. I reviewed and verified all information documented by the medical student and made modifications to such information, when appropriate. I personally performed the physical exam and medical decision making. Demetria Atkinson, May 17, 2020,08:23 JB ZURITA MED STUDENT May 16, 2020 10:39 DEMETRIA ATKINSON DO May 16, 2020 20:06
--- NOTE | 2020-05-16 10:41 | Occupational Therapy Eval ---
OT Evaluation-General/PLF Medical Diagnosis Admission Date May 15, 2020 at 16:52 Medical Diagnosis: L UE swelling Onset Date: May 15, 2020 Therapy Diagnosis Therapy Diagnosis: lymphedema; decreased LUE ability Height/Weight Height (Feet): 5 Height (Inches): 2.00 Weight (Pounds): 153 Weight (Ounces): 0.0 Precautions Precautions/Isolations: Standard Precautions Referral Physician: Addie Referral Reason: Activity Tolerance, Self Care, Evaluation/Treatment, Strengthening/ROM Medical History Additional Medical History Lymphedema LUE Current History Per charts, pt had fall 05/14, came in 05/15 with LUE swelling/ redness. Pt has h/o LUE lymphedema with lymph node removal. Reviewed History: Yes Social History Current Living Status: Spouse ADL-Prior Level of Function SCALE: Activities may be completed with or without assistive devices. 0-Jmrtdsuiwf-odacopz completes the activity by him/herself with no assistance from a helper. 5-Set-up or Clean-up Assistance-helper sets up or cleans up; patient completes activity. [place] assists only prior to or following the activity. 4-Supervision or Touching Assistance-helper provides verbal cues and/or touching/steadying and/or contact guard assistance as patient completes activity. Assistance may be provided throughout the activity or intermittently. 3-Partial/Moderate Assistance-helper does LESS THAN HALF the effort. [place] lifts, holds or supports trunk or limbs, but provides less than half the effort. 2-Substantial/Maximal Assistance-helper does MORE THAN HALF the effort. [place] lifts or holds trunk or limbs and provides more than half the effort. 6-Moedxbimg-hqyadb does ALL the effort. Patient does none of the effort to complete the activity. Or, the assistance of 2 or more helpers is required for the patient to complete the activity. If activity was not attempted, code reason: 7-Patient Refused. 9-Not Applicable-not attempted and the patient did not perform the activity before the current illness, exacerbation or injury. 10-Not Attempted due to Environmental Limitations-(lack of equipment, weather restraints, etc.). 88-Not Attempted due to Medical Conditions or Safety Concerns. ADL PLOF Comments Pt states she is IND at home with I/ADL tasks without use of AD. Self Care: Independent Functional Cognition: Independent Occupation: retired. Drive Self: Yes OT Current Status Subjective Pt AxO, denies pain. In bed with LUE visibly edematous. Pt states a h/o lymphedema/ swelling/ cellulitis ~9 years ago. Then, she received lymphedema tx and was given a LUE garment. Pt expresses this is uncomfortable/ denies use at this time. Pt states she takes good care of her arm. When OT brings up fall ~2 days ago, pt questions what fall, then states she fell going up the stairs. Mental Status/Objective Patient Orientation: Normal For Age Attachments: IV Current Glasses/Contacts: Yes Hearing Aids: No Dentures/Partials: No Hand Dominance: Right Upper Extremity ROM WFL BUE Upper Extremity Coordination WFL BUE Upper Extremity Sensation WFL BUE Upper Extremity Strength WFL BUE Edema: L UE non pitting ADL-Treatment Eating (QC): 6 (per pt) Oral Hygiene (QC): 6 (per pt) Upper Body Dressing (QC): 6 (per pt) Lower Body Dressing (QC): 6 (per pt) Other Treatments Pt in bed, completes evaluation in bed. Pt's LUE non-pitting edema. States swelling began ~1 day ago. Warm to the touch (similar to RUE), no wounds, no redness. Pt states fell up the stairs, catching self with BUE- potentially causing inflammatory response. Pt is educated on swelling, use of hand sponge and active movement to increase lymphatic flow. Pt is instructed to keep eye on swelling and if does not decrease to call DO for order of lymphedema management. Pt understands, though states she does not desire to get another arm sleeve. Pt is educated on jail swelling's affect on the body/ lymphatic vessels and possible need for continued arm sleeve, though can be addressed if edema does not decrease on own. Pt understands, OT to continue to treat pt in the hospital for lymphedema management and education on lymphedema, sx, home care/ safety to decrease risk of infection/ wounds/ continued lymphatic distress. Pt understands, agrees. Is instructed to complete 20 sponge squeezes, wrist curls, bicep curls, then shoulder flexion, rest for ~30 minutes and not overuse. Pt agrees. Education OT Patient Education: Correct positioning, Disease process, Exercise program, Home exercise program, Purpose of tx/functional activities, Safety issues Teaching Recipient: Patient Teaching Methods: Demonstration, Discussion Response to Teaching: Verbalize Understanding, Return Demonstration OT [facility] [employer] Labor Supervisor Goals Time Frame: May 23, 2020 Return demonstrate lymphedema management techniques for increased lymphatic flow and safety for home management. Additional Goals: 3-ImproveStrength/Jeff 1=Demonstrate adherence to instructed precautions during ADL tasks. 2=Patient will verbalize/demonstrate understanding of assistive devic es/modifications for ADL. 3=Patient will improve strength/tolerance for activity to enable patient to perform ADL's. OT Education/Plan Problem List/Assessment Assessment: Edema, Impaired I ADL's, Impaired Self-Care Skills, Restricted Funct UE ROM Discharge Recommendations Plan/Recommendations: Continue POC Therapy Discharge Recommendati: Home & Family, Post Acute OT (lymphedema evaluation) Treatment Plan/Plan of Care Treatment,Training & Education: Yes Patient would benefit from OT for education, treatment and training to promote independence in ADL's, mobility, safety and/or upper extremity function for ADL's. Plan of Care: ADL Retraining, Caregiver Training, UE Funct Exercise/Act Treatment Duration: May 23, 2020 Frequency: 5 times per week Estimated Hrs Per Day: .25 hour per day Agreement: Yes Rehab Potential: Good Time/GCodes Start Time: 10:04 Stop Time: 10:12 Total Time Billed (hr/min): 8 Billed Treatment Time 1, EVL (8) OT to instruct pt in lymphedema management tasks while inpt. JAMES STEVENSON OTR May 16, 2020 10:41
--- NOTE | 2020-05-16 11:12 | Physical Therapy Evaluation ---
PT Evaluation-General Medical Diagnosis Admission Date May 15, 2020 at 16:52 Medical Diagnosis: L UE swelling, weakness Onset Date: May 15, 2020 Therapy Diagnosis Therapy Diagnosis: impaired strength Height/Weight Height (Feet): 5 Height (Inches): 2.00 Weight (Pounds): 153 Weight (Ounces): 0.0 Precautions Precautions/Isolations: Standard Precautions Referral Physician: Demetria Real DO Reason for Referral: Evaluation/Treatment Medical History Additional Medical History Past Medical History Surgeries: Breast, Hysterectomy, Orthopedic, Tonsillectomy Currently Using CPAP: No Currently Using BIPAP: No Cardiac: Hypotension, Syncope Reproductive: Yes Gastrointestinal: Colitis, Gastroesophageal Reflux Musculoskeletal: Back Injury, Fractures HEENT: Cataract Cancer: Breast Did You Recieve Any Treatments: Yes What Type of Treatment Did You: Chemotherapy, Radiation, Surgical Intervention Reviewed History: Yes Social History Home: [facility] Current Living Status: Spouse Entry Into Home: Stairs With Railing PT Steps Into Home: 4 Prior Prior Level of Function SCALE: Activities may be completed with or without assistive devices. 6-Ofhhuzkkgo-eptjfct completes the activity by him/herself with no assistance from a helper. 5-Set-up or Clean-up Assistance-helper sets up or cleans up; patient completes activity. [place] assists only prior to or following the activity. 4-Supervision or Touching Assistance-helper provides verbal cues and/or touching/steadying and/or contact guard assistance as patient completes activity. Assistance may be provided throughout the activity or intermittently. 3-Partial/Moderate Assistance-helper does LESS THAN HALF the effort. [place] lifts, holds or supports trunk or limbs, but provides less than half the effort. 2-Substantial/Maximal Assistance-helper does MORE THAN HALF the effort. [place] lifts or holds trunk or limbs and provides more than half the effort. 8-Wtsdapsqi-qhyzhm does ALL the effort. Patient does none of the effort to complete the activity. Or, the assistance of 2 or more helpers is required for the patient to complete the activity. If activity was not attempted, code reason: 7-Patient Refused. 9-Not Applicable-not attempted and the patient did not perform the activity before the current illness, exacerbation or injury. 10-Not Attempted due to Environmental Limitations-(lack of equipment, weather restraints, etc.). 88-Not Attempted due to Medical Conditions or Safety Concerns. Bed Mobility: 6 Transfers (B,C,W/C): 6 Gait: 6 Stairs: 6 Indoor Mobility (Ambulation): Independent Stairs: Independent PT Evaluation-Current Subjective Patient in bed pre tx, agrees to PT, has no complaints of pain at rest. Pt/Family Goals "to go home" Objective Patient Orientation: Person, Place, Situation Attachments: SCD's ROM/Strength ROM Lower Extremities WNL Strength Lower Extremities 4+/5 gross BLE Sensory Hearing: Functional Hand Dominance: Right Sensation Right Lower Extremit: Intact Sensation Left Lower Extremity: Intact Transfers Roll Left to Right (QC): 6 Sit to Lying (QC): 6 Lying to Sitting/Side of Bed(Q: 6 Sit to Stand (QC): 6 Chair/Xlj-mk-Lpwtv Xfer(QC): 6 Gait Does the Patient Walk?: Yes Mode of Locomotion: Walk Anticipated Mode of Locomotion: Walk Walk 10 feet (QC): 6 Walk 50 ft with 2 Turns(QC): 6 Distance: 100' Gait Assistive Device: None Comments/Gait Description Patient ambulates about her room independently, no unsteadiness with turning, she says she has been ambulating to the restroom on her own without difficulty, patient states she feels confident with her ambulation and she is ambulating like normal with no unsteadiness Balance Sitting Static: Normal Sitting Dynamic: Normal Standing Static: Normal Standing Dynamic: Normal Assessment/Needs Patient is independent with functional mobility but has slight weakness in both legs. Patient in bed post tx with nurse call, phone, tray, all needs met, SCD's on Rehab Potential: Good PT Plan Problem List Problem List: Functional Strength Treatment/Plan Treatment Plan: Discontinue PT Treatment Duration: May 16, 2020 Frequency: Patient and/or Family Agrees t: Yes Safety Risks/Education Patient Education: Gait Training, Transfer Techniques, Correct Positioning, Safety Issues Teaching Recipient: Patient Teaching Methods: Demonstration, Discussion Response to Teaching: Verbalize Understanding Discharge Recommendations Plan DC Time/GCodes Time In: 1057 Time Out: 1107 Total Billed Treatment Time: 10 Total Billed Treatment 1 visit EVL ANASTASIIA ALFONSO PT May 16, 2020 11:12
[2020-05-16 11:28] VITALS: BP 102/65
[2020-05-16] MEDS ORDERED: ACETAMINOPHEN 500 MG TAB (TYLENOL) PO SCH (13:00)
--- NOTE | 2020-05-16 14:47 | NUR ---
"RD ASSESSMENT PMHx: HTN; CA(breast); GERD; PT INTERACTION: Pt was awake and pleasant during nutrition assessment. Pt states current appetite is okay. Note avg PO intake of 100% x3meal, per chart review. Pt states following a regular diet at home, and has no issues with chewing/swallowing food. Pt states no recent issues with nausea, vomiting, constipation, or diarrhea. Note last BM was 05/16, and pt currently on bowel regimen of senna BID, per chart review. Pt states recent 6# wt loss, attributing it COVID diagnosis. Note unable to determine recent wt hx, per chart review. Note presence of cellulitis (LUE), per chart review. Est. kcal needs: 5989-5146 kcal | 20-25 kcal/kg Est. Pro needs: 67-80 g Pro | 1.0-1.2 g Pro/kg PES STATEMENT: Given current appetite and PO intake, no nutrition diagnosis at this time (NO-1.1). INTERVENTION: Continue with current diet order of Regular diet. Will continue to follow and reassess as pt needs, intake, and status change. Marie CHEATHAM, MS RD LD [phone] cell"
[2020-05-16 16:35] VITALS: BP 100/57
[2020-05-16] MEDS: ENOXAPARIN 40 MG/0.4 ML (LOVENOX) SYR SC SCH (17:38)
[2020-05-16 20:00] VITALS: BP 100/59
[2020-05-16] MEDS: ACETAMINOPHEN 500 MG TAB (TYLENOL) PO SCH (20:39)
[2020-05-16] MEDS: GABAPENTIN 100 MG (NEURONTIN) CAP PO SCH (20:40)
[2020-05-16] MEDS: CALCIUM CARB + VIT D 600 MG (CALCARB + D) TAB PO SCH (20:40)
[2020-05-16] MEDS ORDERED: MSM PO SCH (21:00)
[2020-05-16] MEDS ORDERED: ASPIRIN E.C. 81 MG (ECOTRIN) TAB PO SCH (21:00)
[2020-05-16] MEDS ORDERED: [UNRECOGNIZED DRUG - OTHER] PO SCH (21:00)
[2020-05-16] MEDS ORDERED: GLUCOSAMINE HCL PO SCH (21:00)
[2020-05-17 00:28] VITALS: BP 105/64
[2020-05-17 04:15] VITALS: BP 115/70
[2020-05-17] MEDS: PIPERACILLIN/TAZO 4.5 GM/NS 100 ML IV SCH ×2 (05:22)
[2020-05-17] MEDS: LINEZOLID IVPB 300 ML IV SCH (05:22)
[2020-05-17 06:03] LABS: BASOPHILS % (AUTO) 1 % (0-10); EOSINOPHILS # (AUTO) 0.5 10^3/uL (0.0-0.3); EOSINOPHILS % (AUTO) 6 % (0-10); HEMATOCRIT 31 % (35-52); HEMOGLOBIN 9.8 g/dL (11.5-16.0); LYMPHOCYTES # (AUTO) 2.6 10^3/uL (1.0-4.0); LYMPHOCYTES % (AUTO) 32 % (12-44); MEAN CORPUSCULAR HEMOGLOBIN 29 pg (25-34); MEAN CORPUSCULAR HGB CONC 32 g/dL (32-36); MEAN CORPUSCULAR VOLUME 90 fL (80-99); MEAN PLATELET VOLUME 8.6 fL (9.0-12.2); MONOCYTES # (AUTO) 0.7 10^3/uL (0.0-1.0); MONOCYTES % (AUTO) 9 % (0-12); NEUTROPHILS # (AUTO) 4.5 10^3/uL (1.8-7.8); NEUTROPHILS % (AUTO) 53 % (42-75); PLATELET COUNT 396 10^3/uL (130-400); WHITE BLOOD COUNT 8.4 10^3/uL (4.3-11.0)
[2020-05-17 06:25] LABS: ALBUMIN 3.2 GM/DL (3.2-4.5)
[2020-05-17 06:26] LABS: CHLORIDE 112 MMOL/L (98-107); POTASSIUM 3.9 MMOL/L (3.6-5.0); SODIUM 145 MMOL/L (135-145)
[2020-05-17 06:27] LABS: CALCIUM 8.4 MG/DL (8.5-10.1)
[2020-05-17 06:28] LABS: GLUCOSE 94 MG/DL (70-105)
[2020-05-17 06:29] LABS: CARBON DIOXIDE 21 MMOL/L (21-32)
[2020-05-17 06:30] LABS: BILIRUBIN,TOTAL 0.2 MG/DL (0.1-1.0)
[2020-05-17 06:31] LABS: ALKALINE PHOSPHATASE 77 U/L (40-136)
[2020-05-17 06:32] LABS: GFR ESTIMATED > 60
[2020-05-17 06:33] LABS: BUN/CREATININE RATIO 9
[2020-05-17 06:35] LABS: ALANINE AMINOTRANSFERASE 21 U/L (0-55)
[2020-05-17] MEDS ORDERED: MULTIVIT W/MINERALS TAB (THERAGRAN M) PO SCH (07:00)
[2020-05-17 08:00] VITALS: BP 113/70
[2020-05-17] MEDS: ACETAMINOPHEN 500 MG TAB (TYLENOL) PO SCH (08:23)
[2020-05-17] MEDS: GABAPENTIN 100 MG (NEURONTIN) CAP PO SCH (08:24)
[2020-05-17] MEDS: SENNA W/DOCUSATE (SENOKOT S) TABLET PO SCH (08:26)
[2020-05-17] MEDS: CALCIUM CARB + VIT D 600 MG (CALCARB + D) TAB PO SCH (08:26)
[2020-05-17] MEDS ORDERED: OMEGA 3 (FISH OIL) 1000 MG CAP PO SCH (09:00)
[2020-05-17] MEDS ORDERED: PANTOPRAZOLE 40 MG (PROTONIX) TAB PO SCH (09:00)
[2020-05-17] MEDS ORDERED: LORATADINE (CLARITIN) 10 MG TAB PO SCH (09:00)
[2020-05-17] MEDS ORDERED: VITAMIN D3 25 MCG (1,000 UNITS) TABLET PO SCH (09:00)
[2020-05-17] MEDS ORDERED: PARoxetine 20 MG (PAXIL) TAB PO SCH (09:00)
[2020-05-17] MEDS ORDERED: MOMETASONE 0.1% CREAM 15 GM (ELOCON) TOP SCH (09:00)
[2020-05-17] MEDS ORDERED: ASPIRIN E.C. 81 MG (ECOTRIN) TAB PO SCH ×2 (09:00→21:00)
[2020-05-17] MEDS ORDERED: VITAMIN E 180 MG (400 UNITS) CAP PO SCH (09:00)
[2020-05-17] MEDS ORDERED: CEFD300C3 PO (09:43)
[2020-05-17] MEDS ORDERED: LINE600T12 PO (09:43)
[2020-05-17] MEDS ORDERED: PARO20TA5 PO (09:43)
--- NOTE | 2020-05-17 09:44 | Discharge Summary ---
Discharge Summary Hospital Course Was the Problem List Reviewed?: Yes Problems/Dx: (1) Lymphedema of left upper extremity Status: Acute (2) Cellulitis of left upper extremity Status: Acute (3) Sepsis Status: Acute Qualifiers: Qualified Codes: A41.9 - Sepsis, unspecified organism Hospital Course Date of Admission: May 15, 2020 at 16:52 Admission Diagnosis : Family Physician/Provider: Charly Post MD Date of Discharge: 05/17/20 Discharge Diagnosis: left upper extremity cellulitis with lymphedema Hospital Course: Hospital Course: Pt had a short hospital course for 3 days after she was admitted for left upper extremity cellulitis with complicated issue with lymphedema from breast cancer surgery. She has not had a great deal of issues with this before so I went ahead and ordered Zyvox since she was allergic to Vancomycin and Zosyn for broad spectrum coverage. She is doing very well today. I did go ahead and DC her on Cefdinir and Zyvox for an additional six days. She will begin to wear her lymphedema sleeve and monitor that closely. She will have an appointment with her primary this week. Labs and Pending Lab Test: Laboratory Tests 05/17/20 05:35: White Blood Count 8.4, Red Blood Count 3.39L, Hemoglobin 9.8L, Hematocrit 31L, Mean Corpuscular Volume 90, Mean Corpuscular Hemoglobin 29, Mean Corpuscular Hemoglobin Concent 32, Red Cell Distribution Width 14.2, Platelet Count 396, Mean Platelet Volume 8.6L, Immature Granulocyte % (Auto) 1, Neutrophils (%) (Auto) 53, Lymphocytes (%) (Auto) 32, Monocytes (%) (Auto) 9, Eosinophils (%) (Auto) 6, Basophils (%) (Auto) 1, Neutrophils # (Auto) 4.5, Lymphocytes # (Auto) 2.6, Monocytes # (Auto) 0.7, Eosinophils # (Auto) 0.5H, Basophils # (Auto) 0.0, Immature Granulocyte # (Auto) 0.1, Sodium Level 145, Potassium Level 3.9, Chloride Level 112H, Carbon Dioxide Level 21, Anion Gap 12, Blood Urea Nitrogen 7, Creatinine 0.80, Estimat Glomerular Filtration Rate > 60, BUN/Creatinine Ratio 9, Glucose Level 94, Calcium Level 8.4L, Corrected Calcium 9.0, Total Bilirubin 0.2, Aspartate Amino Transf (AST/SGOT) 21, Alanine Aminotransferase (ALT/SGPT) 21, Alkaline Phosphatase 77, Total Protein 6.0L, Albumin 3.2 Microbiology 05/15/20 Blood Culture - Preliminary, Resulted No growth Home Meds Active Cefdinir 300 Mg Capsule 300 Mg PO BID Zyvox (Linezolid) 600 Mg Tablet 600 Mg PO BID Paroxetine HCl 20 Mg Tablet 20 Mg PO DAILY 7 Days Hold this medication for 7 days while on Zyvox antibiotic Reported Gabapentin 100 Mg Capsule 100 Mg PO 1400 Aspirin EC (Aspirin) 81 Mg Tablet.dr 81 Mg PO HS Vitamin E (Vitamin E Acetate) 400 Unit Capsule 400 Unit PO DAILY Vitamin D3 (Cholecalciferol (Vitamin D3)) 25 Mcg Capsule 25 Mcg PO DAILY Glucosamine (Glucosamine Sulfate 2Kcl) 1,000 Mg Tablet 1,000 Mg PO BID Fluticasone Propionate 120 Ml Lotion 120 Ml TP DAILY Omeprazole 40 Mg Capsule.dr 40 Mg PO DAILY Centrum Silver Women Tablet (Multivits-Min/Iron/FA/Lutein) 1 Each Tablet 1 Each PO DAILY Megared [place]-3 Krill Oil Sfgl (Krill/Om-3/Dha/Epa/Phospho/Ast) 1 Each Capsule 1 Each PO DAILY Aller-Hiwot (Cetirizine HCl) 10 Mg Tablet 10 Mg PO DAILY Tylenol Extra Strength (Acetaminophen) 500 Mg Tablet 1,000 Mg PO TID Gabapentin 100 Mg Capsule 200 Mg PO BID TAKES 2 (100MG) TABS Atorvastatin Calcium 20 Mg Tablet 20 Mg PO HS Assessment/Pt Instructions Self this week Discharge Planning: <30 minutes discharge planning Discharge Physical Examination Vital Signs Vital Signs Date Time Temp Pulse Resp B/P (MAP) Pulse Ox O2 Delivery O2 Flow Rate FiO2 05/17/20 09:00 95 Room Air 05/17/20 08:00 36.6 59 20 113/70 (84) General Appearance: No Apparent Distress, WD/WN Skin: Rash (resolved left arm) Neurologic/Psychiatric: Alert, Oriented x3, No Motor/Sensory Deficits, Normal Mood/Affect Allergies: Coded Allergies: vancomycin (Verified Allergy, Intermediate, RASH, 05/15/20) Sulfa (Sulfonamide Antibiotics) (Unverified Allergy, Mild, RASH, 05/15/20) Discharge Summary Date of Admission May 15, 2020 at 16:52 Date of Discharge Discharge Date: May 17, 2020 Admission Diagnosis Assessment: Sepsis Left upper extremity cellulitis Left upper extremity lymphedema Breast cancer hx Plan: IV abx Home meds HLIVF PT OT Discharge Diagnosis (1) Lymphedema of left upper extremity Status: Acute (2) Cellulitis of left upper extremity Status: Acute (3) Sepsis Status: Acute Qualifiers: Qualified Codes: A41.9 - Sepsis, unspecified organism Clinical Quality Measures DVT/VTE Risk/Contraindication: Risk Factor Score Per Nursin RFS Level Per Nursing on Admit: 2=Moderate YANY ATKINSON DO May 17, 2020 09:44
[2020-05-17] MEDS ORDERED: ACID1TAB5 PO (09:45)
[2020-05-17] MEDS ORDERED: LACTOBACILLUS ACIDOPHILUS (PROBIOTIC) CAPSULE PO SCH (09:45)
--- NOTE | 2020-05-17 09:46 | Occupational Ther Daily Note ---
OT Current Status-Daily Note Subjective Pt in bed, AxO. Pt denies pain, LUE visibly less edematous than yesterday. Pt states compliance with exercises yesterday. Mental Status/Objective Patient Orientation: Person, Place, Situation, Normal For Age Attachments: IV ADL-Treatment Therapy Code Descriptions/Definitions Functional [place] Measure: 0=Not Assessed/NA 4=Minimal Assistance 1=Total Assistance 5=Supervision or Setup 2=Maximal Assistance 6=Modified [place] 3=Moderate Assistance 7=Complete IndependenceSCALE: Activities may be completed with or without assistive devices. 0-Gqbhqtnvui-ococzbt completes the activity by him/herself with no assistance from a helper. 5-Set-up or Clean-up Assistance-helper sets up or cleans up; patient completes activity. [place] assists only prior to or following the activity. 4-Supervision or Touching Assistance-helper provides verbal cues and/or touching/steadying and/or contact guard assistance as patient completes activity. Assistance may be provided throughout the activity or intermittently. 3-Partial/Moderate Assistance-helper does LESS THAN HALF the effort. [place] lifts, holds or supports trunk or limbs, but provides less than half the effort. 2-Substantial/Maximal Assistance-helper does MORE THAN HALF the effort. [place] lifts or holds trunk or limbs and provides more than half the effort. 9-Gtuvyfaiq-izjvbi does ALL the effort. Patient does none of the effort to complete the activity. Or, the assistance of 2 or more helpers is required for the patient to complete the activity. If activity was not attempted, code reason: 7-Patient Refused. 9-Not Applicable-not attempted and the patient did not perform the activity before the current illness, exacerbation or injury. 10-Not Attempted due to Environmental Limitations-(lack of equipment, weather restraints, etc.). 88-Not Attempted due to Medical Conditions or Safety Concerns. Eating (QC): 6 Other Treatment Pt's LUE is skillfully measured to address baseline measures. Pt is educated again on continued swelling's harm to tissue. Pt is educated to contact DO if continues swelling over 1 week. Pt is educated on MLD, modified MLD completed to LUE with education throughout. Pt return demonstrates with cues. Pt bed mob SBA and ambulates to chair with SBA/ no AD. Pt sits/ LE's elevated, denies needs, call light in reach. Education OT Patient Education: Correct positioning, Exercise program, Home exercise program, Purpose of tx/functional activities, Safety issues Teaching Recipient: Patient Teaching Methods: Demonstration, Discussion Response to Teaching: Verbalize Understanding, Return Demonstration OT [facility] Goals Disease And Insect Control Boss Goals Time Frame: May 23, 2020 Return demonstrate lymphedema management techniques for increased lymphatic flow and safety for home management. Additional Goals: 3-ImproveStrength/Jeff 1=Demonstrate adherence to instructed precautions during ADL tasks. 2=Patient will verbalize/demonstrate understanding of assistive devices/modifications for ADL. 3=Patient will improve strength/tolerance for activity to enable patient to perform ADL's. OT Education/Plan Problem List/Assessment Assessment: Edema Discharge Recommendations Plan/Recommendations: Continue POC Therapy Discharge Recommendati: Home & Family, Post Acute OT Treatment Plan/Plan of Care Treatment,Training & Education: Yes Patient would benefit from OT for education, treatment and training to promote independence in ADL's, mobility, safety and/or upper extremity function for ADL's. Plan of Care: ADL Retraining, Caregiver Training, UE Funct Exercise/Act Treatment Duration: May 23, 2020 Frequency: 5 times per week Estimated Hrs Per Day: .25 hour per day Agreement: Yes Rehab Potential: Good Time/GCodes Start Time: 09:05 Stop Time: 09:16 Total Time Billed (hr/min): 11 Billed Treatment Time 1, FA (11) JAMES STEVENSON OTR May 17, 2020 09:46
--- NOTE | 2020-05-17 10:30 | Progress Note ---
JB ZURITA MED STUDENT 05/17/20 1030: Progress Note Gely is a 75yo female who presented to the ER with complaints of left hand and arm swelling. She noticed it was red and tender the morning of 05/15/20 and so she felt it was appropriate to seek medical attention. She has a history of chronic lymphedema in her left arm due to axillary dissection after breast cancer. She has had episodes like this in the past where she required admission and antibiotics, and her last episode was in 2011. She denied any trauma or inciting event prior to this infection. Labs in the ER raised concerns for possible sepsis as she had a white count of 12.2, pulse of 112, lactic acid 3.37, and significant lymphedema with redness. Due to these factors she was initiated on broad spectrum antibiotic coverage with Zosyn and Zyvox due to vancomycin allergy. Over the next day of treatment and monitoring, she graudally began feeling better and labs improved. On 05/16/20 her white count dropped to 10.3 and down to 8.4 by 05/17/20. Lymphedema also significantly improved over this course. Pt felt ready to go home on 05/17/20 and her medical team agreed this was an appropriate plan. With her discharge, antibiotics were changed to oral Cefdinir and oral Linezolid for 6 days. She also was sent home with a course of probiotics to treat her recent onset diarrhea secondary to antibiotic use. Patient agreed with plan and will return to hospital if any other issues arise. DEMETRIA ATKINSON DO 05/18/20 0614: Supervisory-Addendum Brief Verification & Attestation Participated in pt care: history, MDM, physical Personally performed: exam, history, MDM, supervision of care Care discussed with: Medical Student Procedures: n/a Results interpretation: Verified all documentation Verification and Attestation of Medical Student E/M Service A medical student performed and documented this service in my presence. I reviewed and verified all information documented by the medical student and made modifications to such information, when appropriate. I personally performed the physical exam and medical decision making. Demetria Atkinson, May 18, 2020,06:14 JB ZURITA MED STUDENT May 17, 2020 10:30 DEMETRIA ATKINSON DO May 18, 2020 06:14
--- NOTE | 2020-05-17 12:35 | NUR ---
Pt discharge home and will be card for by and family. No dischage needs identified.
[2020-05-17] MEDS ORDERED: GABAPENTIN 100 MG (NEURONTIN) CAP PO SCH ×2 (14:00)
== END 2020-05-17 11:30 | disposition home or self-care (01) | DRG 872 ==
LOC: EDUNIT# 11:48 → ER FS 11:52 → 4TH 16:52
PROVIDERS: ADMIT Internal Medicine; ATTEND Internal Medicine
DX: A41.9 Sepsis, unspecified organism (principal); L03.114 Cellulitis of left upper limb; I89.0 Lymphedema, not elsewhere classified; K21.9 Gastro-esophageal reflux disease without esophagitis; Z85.3 Personal history of malignant neoplasm of breast; Z86.16 Personal history of COVID-19; Z88.1 Allergy status to other antibiotic agents; Z88.2 Allergy status to sulfonamides; Z79.82 Long term (current) use of aspirin
CPT/HCPCS: 36415; 80053; 83605; 85025; 86141; 87040

== ENCOUNTER → 2020-11-22 | Outpatient (CLI) | payer MEDICARE, BC ==
[~2020-11-22] MED LIST changes: +ACID1TAB5 PO; +ASPI-1238 PO; +CEFD300C3 PO; +CHOL100048 PO; +GLUC100016 PO; +LINE600T12 PO; -OMEP40CA27 PO; +OMEP40CA6 PO; +VITA400C60 PO
[2020-11-22 13:30] LABS: BASOPHILS # (AUTO) 0.1 10^3/uL (0.0-0.1); BASOPHILS % (AUTO) 1 % (0-10); EOSINOPHILS # (AUTO) 0.2 10^3/uL (0.0-0.3); EOSINOPHILS % (AUTO) 2 % (0-10); HEMATOCRIT 38 % (35-52); LYMPHOCYTES # (AUTO) 2.9 10^3/uL (1.0-4.0); LYMPHOCYTES % (AUTO) 37 % (12-44); MEAN CORPUSCULAR HEMOGLOBIN 29 pg (25-34); MEAN CORPUSCULAR HGB CONC 32 g/dL (32-36); MEAN CORPUSCULAR VOLUME 91 fL (80-99); MEAN PLATELET VOLUME 8.8 fL (9.0-12.2); MONOCYTES # (AUTO) 0.7 10^3/uL (0.0-1.0); MONOCYTES % (AUTO) 9 % (0-12); NEUTROPHILS % (AUTO) 51 % (42-75); PLATELET COUNT 247 10^3/uL (130-400); WHITE BLOOD COUNT 7.8 10^3/uL (4.3-11.0)
[2020-11-22 13:51] LABS: ALANINE AMINOTRANSFERASE 22 U/L (0-55); ALBUMIN 3.9 GM/DL (3.2-4.5); ALKALINE PHOSPHATASE 99 U/L (40-136); BILIRUBIN,TOTAL 0.4 MG/DL (0.1-1.0); BUN/CREATININE RATIO 20; CARBON DIOXIDE 27 MMOL/L (21-32); CHLORIDE 106 MMOL/L (98-107); CREATININE SERUM 0.79 MG/DL (0.60-1.30); GFR ESTIMATED > 60; GLUCOSE 84 MG/DL (70-105); POTASSIUM 4.2 MMOL/L (3.6-5.0); SODIUM 140 MMOL/L (135-145)
== END ==
LOC: ONC 13:23
PROVIDERS: ATTEND Internal Medicine Hematology & Oncology
DX: C50.912 Malignant neoplasm of unspecified site of left female breast (principal); I89.0 Lymphedema, not elsewhere classified; E66.9 Obesity, unspecified; E78.5 Hyperlipidemia, unspecified; I65.29 Occlusion and stenosis of unspecified carotid artery; Z92.21 Personal history of antineoplastic chemotherapy; Z92.3 Personal history of irradiation; Z90.12 Acquired absence of left breast and nipple
CPT/HCPCS: 80053; 85025; G0463; 99213

== ENCOUNTER → 2021-01-02 | Outpatient (CLI) | payer MEDICARE, BC ==
--- NOTE | 2021-01-02 14:42 | Diagnostic Imaging Report ---
INDICATION: COUGH COMPARISON: None FINDINGS: Frontal and lateral views of the chest demonstrate normal heart size and pulmonary vascularity. The lungs are clear. There are no signs of infiltrate, pleural effusions or pneumothoraces. The visualized osseous structures show no acute abnormalities. IMPRESSION: 1. No acute process. No signs of infiltrates, effusions or pneumothoraces. Dictated by: Dictated on workstation # [id number]
== END ==
LOC: RAD FS 14:23
PROVIDERS: ATTEND Family Medicine
DX: R05 Cough (principal)
CPT/HCPCS: 71046

== ENCOUNTER → 2021-02-03 | Outpatient (CLI) | payer MEDICARE, BC ==
[~2021-02-03] MED LIST changes: +CATHETER FLUSH 10 ML SYR IV PRN; +HOLD METFORMIN - RECEIVED CONTRAST 20 ML VIAL IV SCH; +IOHEXOL 350 MG/ML 100 ML (OMNIPAQUE 350) VIAL IV ONE; +NS 100 ML (IVPB) BAG IV ONE
--- NOTE | 2021-02-03 10:25 | Diagnostic Imaging Report ---
PROCEDURE: CT abdomen and pelvis with contrast. TECHNIQUE: Multiple contiguous axial images were obtained through the abdomen and pelvis after administration of intravenous contrast. Auto Exposure Controls were utilized during the CT exam to meet ALARA standards for radiation dose reduction. All CT scans use one or more of the following dose optimizing techniques: automated exposure control, MA and/or KvP adjustment based on patient size and exam type or iterative reconstruction. INDICATION: 75-year-old female, lower abdominal pain with intermittent loose stools for the past several months. History of breast cancer. CORRELATION STUDY: None. FINDINGS: LOWER THORAX: Clear. LIVER: Unremarkable. GALLBLADDER: Present and unremarkable. No bile duct dilatation. SPLEEN: Unremarkable. PANCREAS: Unremarkable. ADRENAL GLANDS: Unremarkable. KIDNEYS: Normal configuration. No calcification or obstruction. ABDOMINAL AORTA: Normal in configuration without aneurysm. Scattered prominent wall calcification. This includes at the origin of the celiac trunk and superior mesenteric artery without high degree stenosis. GASTROINTESTINAL TRACT: Stomach is collapsed. However, there is question of a prominent gastric wall thickening. Rather prominent outpouching at the distal stomach and/or proximal duodenum is present. May reflective large diverticulum. No small bowel obstruction. Mild stool through the colon. Colonic diverticulosis without evidence for acute diverticulitis. No abdominal ascites and/or free air. URINARY BLADDER: Unremarkable. REPRODUCTIVE: Post hysterectomy. OSSEOUS STRUCTURES: L5-S1 spinal fusion hardware present. Mild spondylolisthesis L5 on S1. OTHER: None. IMPRESSION: 1. Suggest abnormal gastric wall thickening. Additionally, there is large outpouching of the distal stomach and/or proximal duodenum. Could reflect a large diverticulum. Contained perforation considered much less likely. This does result in mass effect upon the right upper quadrant structures including gallbladder, biliary tree and hepatic flexure of the colon. Consideration for upper gastrointestinal imaging would be recommended. Dictated by: Dictated on workstation # [id number]
== END ==
LOC: RAD FS 08:37
PROVIDERS: ATTEND Family Medicine
DX: E78.2 Mixed hyperlipidemia (principal); F51.01 Primary insomnia; R10.84 Generalized abdominal pain; Z85.3 Personal history of malignant neoplasm of breast
CPT/HCPCS: 74177

== ENCOUNTER → 2021-03-08 | Outpatient (CLI) | payer MEDICARE, BC ==
[2021-02-03 09:21] LABS: CREATININE SERUM 0.89 MG/DL (0.60-1.30); POTASSIUM 3.9 MMOL/L (3.6-5.0)
[2021-02-03 09:23] LABS: ALBUMIN 4.2 GM/DL (3.2-4.5); BILIRUBIN,TOTAL 0.3 MG/DL (0.1-1.0); CALCIUM 9.2 MG/DL (8.5-10.1); TOTAL PROTEIN 7.2 GM/DL (6.4-8.2)
[~2021-03-08] MED LIST changes: -CATHETER FLUSH 10 ML SYR IV PRN; -HOLD METFORMIN - RECEIVED CONTRAST 20 ML VIAL IV SCH; -IOHEXOL 350 MG/ML 100 ML (OMNIPAQUE 350) VIAL IV ONE; -NS 100 ML (IVPB) BAG IV ONE
--- NOTE | 2021-03-09 08:41 | Diagnostic Imaging Report ---
Indication: Routine screening. Comparison is made with prior mammogram 03/07/2020 and level 03/25/2019. 2-D and 3-D bilateral screening mammography was performed with CAD. Both breasts are heterogeneously dense, limiting the sensitivity of mammography. A post-therapeutic changes in the left breast are again noted and appears stable. There is some motion artifact on the left MLO view. There are extensive vascular calcifications. Surgical clips are noted in the left axilla. IMPRESSION: BI-RADS Category 2 No mammographic features suspicious for malignancy are identified. ACR BI-RADS Category 2: Benign findings. Result letter will be mailed to the patient. Note: At least 10% of breast cancer is not imaged by mammography. Dictated by: Dictated on workstation # [id number]
== END ==
LOC: RAD 15:28
PROVIDERS: ATTEND Internal Medicine Hematology & Oncology
DX: Z12.31 Encounter for screening mammogram for malignant neoplasm of breast (principal); Z85.3 Personal history of malignant neoplasm of breast
CPT/HCPCS: 36415; 77063; 77067; 80053

== ENCOUNTER 2023-01-08 14:37 | Emergency (ER) | payer OTHER, MEDICARE, BC ==
[~2023-01-08] VITALS: Ht 154 cm; Wt 68.0 kg
[2023-01-08] MEDS ORDERED: ACETAMINOPHEN 500 MG TABLET PO STA (14:52)
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
[2023-01-08 16:15] VITALS: BP 129/70
== END 2023-01-08 16:16 | disposition home or self-care (01) ==
LOC: EDUNIT# 14:37 → ER FS 14:39
DX: S09.90XA Unspecified injury of head, initial encounter (principal); R07.89 Other chest pain; V48.6XXA Car passenger injured in noncollision transport accident in traffic accident, initial encounter; Y92.410 Unspecified street and highway as the place of occurrence of the external cause
CPT/HCPCS: 70450; 71250; 72125